=== PATIENT | female | born 1995 | race Caucasian/White ===

== ENCOUNTER 2016-08-15 22:57 | Emergency (ER) | payer OTHER ==
[~2016-08-15] VITALS: Ht 162.6 cm; Wt 61.0 kg
[2016-08-15 23:00] VITALS: BP 126/90; PULSE 94; RESP 14; TEMP 98; O2SAT 99
--- NOTE | 2016-08-15 23:29 | PD ---
HPI Chief Complaint: Exposure to Blood/Body Fluids Time Seen by Provider: 23:20 Travel History International Travel<30 days: No Contact w/Intl Traveler<30days: No Traveled to known affect area: No History of Present Illness HPI 21-year-old female presents for evaluation after a needlestick. The patient works as a nurse at this hospital. 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 The source patient's hand was tremulous and bumped into her hand and she stuck her left index finger pad with the subcutaneous needle. She had slight bleeding which has resolved. She was wearing gloves. She is unaware of any history of any source patient communicable diseases. The patient believes that she is up-to-date on her tetanus, hepatitis B series. She has no other complaints. [facility] Past Medical History Immunizations Current: Yes Tetanus Vaccination: < 5 Years Influenza Vaccination: Yes ?: Not LMP: 07/23/16 Social History Alcohol Use: No Tobacco Use: No Substance Use: No Allergies-Medications (Allergen,Severity, Reaction): Coded Allergies: No Known Allergies (Unverified , 08/15/16) Reported Meds & Prescriptions Reported Meds & Active Scripts Active No Active Prescriptions or Reported Medications Review of Systems General / Constitutional: Positive: Other (positive for needlestick), No: Fever Skin: Positive Other (positive for bleeding) Physical Exam Narrative GENERAL: Well-nourished female in no acute distress SKIN: Warm and dry. Pinpoint area of ecchymosis from previous puncture wound left index finger pad CARDIOVASCULAR: Regular rate and rhythm. No murmur appreciated. RESPIRATORY: No accessory muscle use. Clear to auscultation. Breath sounds equal bilaterally. Data Data Last Documented VS Vital Signs Date Time Temp Pulse Resp B/P Pulse Ox O2 Delivery O2 Flow Rate FiO2 08/15/16 23:00 98.0 94 14 126/90 99 Room Air Orders ^ Other Nursing Orders (08/15/16 23:22) MDM Medical Decision Making Medical Screen Exam Complete: Yes Emergency Medical Condition: Yes Medical Record Reviewed: Yes Differential Diagnosis Puncture wound, needle stick, foreign body Narrative Course 21-year-old female presents after a needlestick with a subcutaneous insulin syringe, source patient is at [place], history of Parkinson's. The charge nurse of her floor will be notified, and they will follow there post exposure protocol of obtaining blood from the source patient. No postexposure prophylaxis is recommended in this situation. Our postexposure protocol lab work will be done and the patient can follow up with the health department. Diagnosis Primary Impression: Needlestick injury of finger of left hand Referrals: Employ Med Additional Instructions: Follow-up with employee med, return for any emergent medical conditions. Med/Other Pt SpecificInfo: No Change to Meds Scripts No Active Prescriptions or Reported Meds Disposition: 01 DISCHARGE HOME Condition: Stable Mike Figueroa Aug 15, 2016 23:29
== END 2016-08-16 00:34 | disposition home or self-care (01) ==
LOC: NEPK 22:57
DX: S61.231A Puncture wound without foreign body of left index finger without damage to nail, initial encounter (principal); W46.1XXA Contact with contaminated hypodermic needle, initial encounter; Y93.F9 Activity, other caregiving; Y92.230 Patient room in hospital as the place of occurrence of the external cause; Y99.0 Civilian activity done for income or pay
CPT/HCPCS: 99282